=== PATIENT | female | born 1955 | race Caucasian/White ===

== ENCOUNTER 2021-05-18 15:17 | Emergency (ER) | payer MEDICAID ==
--- NOTE | 2021-05-18 16:09 | ED Physician Documentation ---
PD HPI FOCAL NEURO - Stated complaint Stated Complaint: RT SIDE WEAKNESS/SLURRED SPEACH - Chief complaint Chief Complaint: Neuro - History obtained from History obtained from: Patient, Family - Additional information Additional information: 66-year-old woman brought in by family for concern for stroke. They wonder if she might have some sort of developmental delay. And she has not seen a doctor since 1985. Last Friday she started to have some right-sided deficits and slurred speech. The speech is mostly better now but she still requires a walker to walk which she did not require before last Friday. Symptoms have been going on for 10 days. She denies any headaches or history of stroke. Since the day of onset the family has been giving her baby aspirin daily. This was the first day they could convince her to seek medical evaluation. Review of Systems Ten Systems: 10 systems reviewed and negative Constitutional: reports: Reviewed and negative Throat: reports: Reviewed and negative Respiratory: reports: Reviewed and negative PD PAST MEDICAL HISTORY - Present Medications Home Medications: Ambulatory Orders Medication Instructions Recorded Confirmed Atorvastatin [Lipitor] 1 tab PO DAILY #90 tablet 05/18/21 Clopidogrel [Plavix] 75 mg PO DAILY #21 tablet 05/18/21 Lisinopril [Zestril] 10 mg PO DAILY #90 tablet 05/18/21 - Allergies Allergies/Adverse Reactions: Allergies Allergy/AdvReac Type Severity Reaction Status Date / Time No Known Drug Allergies Allergy Verified 05/18/21 15:30 PD ED PE NORMAL - Vitals Vital signs reviewed: Yes - General General: Alert and oriented X 3, No acute distress - HEENT HEENT: PERRL, EOMI - Neck Neck: Supple, no meningeal sign, No bony TTP - Cardiac Cardiac: RRR, No murmur - Respiratory Respiratory: No respiratory distress, Clear bilaterally - Abdomen Abdomen: Normal bowel sounds, Soft, Non tender - Back Back: No CVA TTP, No spinal TTP - Derm Derm: Normal color, Warm and dry - Neuro Eye Opening: Spontaneous Motor: Obeys Commands Verbal: Oriented GCS Score: 15 - Psych Psych: Normal mood, Normal affect NIHSS - Time Time: 16:00 - Level of Consciousness Level of consciousness: (0) Alert, Keenly responsive LOC Questions: (0) Answers both Q's correct LOC Commands: (0) Performs both correctly - Gaze Best Gaze: (0) Normal - Visual Visual: (0) No loss - Facial Palsy Facial Palsy: (0) Normal, symmetrical movement - Motor Arms (both separate) Motor Arm (right): (1) Drift Motor Arm (left): (0) No drift - Motor Legs (both separate) Motor Leg (right): (0) No drift Motor Leg (left): (1) Drift - Limb Ataxia Limb Ataxia: (0) Absent - Sensory Sensory: (1) Qgbr-mm-nlrergya loss (She has significant inattention to stimulus in the upper and lower right extremity) - Best Language Best Language: (0) No aphasia - Dysarthria Dysarthria: (0) Normal - Extinction and Inattention (formally neg Extinction and inattention: (1) Visual,tactile,auditory,spatial, or personal inattention - Total Score/Results Total Score/Result: 4 Results - Vitals Vitals: Vital Signs - 24 hr 05/18/21 05/18/21 05/18/21 15:31 17:36 19:00 Temperature 36.8 C Heart Rate 92 94 90 Respiratory 19 16 18 Rate Blood Pressure 189/100 H 162/102 H 189/100 H O2 Saturation 98 98 99 Oxygen O2 Source Room air - EKG (time done) 1622 Rate: Rate (enter#) (90) Rhythm: NSR [place]: Normal Intervals: Normal [place] QRS: LVH Ischemia: Normal ST segments - Labs Labs: Laboratory Tests 05/18/21 05/18/21 05/18/21 16:31 16:31 16:31 WBC 8.4 RBC 4.82 Hgb 13.9 Hct 42.3 MCV 87.8 MCH 28.8 MCHC 32.9 RDW 13.2 Plt Count 294 MPV 9.9 Neut # (Auto) 6.8 H Lymph # (Auto) 1.1 L [place] # (Auto) 0.5 Eos # (Auto) 0.0 Baso # (Auto) 0.0 Absolute Nucleated RBC 0.00 Nucleated RBC % 0.0 PT 12.0 INR 1.1 Sodium 135 Potassium 3.0 L Chloride 94 L Carbon Dioxide 29 Anion Gap 12.0 BUN 13 Creatinine 0.8 Estimated GFR (MDRD) 72 L Glucose 121 H Calcium 9.4 PD MEDICAL DECISION MAKING - ED course ED course: This is a 66-year-old woman with likely developmental delay according to the family. She had a 10-day-old stroke affecting the right side of her body. Obviously because of the timeframe she is not a TPA candidate. CT angiography demonstrated focal stenosis of the left proximal P2 SIGHTSEEING GUIDE greater than 95%. No evidence of large stroke, she did have atrophy and multifocal white matter disease. CT angiography of the neck demonstrated mild plaquing and a multi nodular thyroid. Labs were relatively unremarkable except for mild hypokalemia at 3.0. I discussed this case with the patient and her niece. The patient is simplistic but has decision-making capacity. She did not want me to discuss the case with the neurologist knowing that that could take her to [place] for vascular intervention and does not want anything more done tonight. As such since she is already been on aspirin I will also put her on 3 weeks of Plavix, statin, and start some blood pressure medication pending follow-up. Dr Naik is the ED followup physician next week and I did email him for a heads up. Departure - Departure Disposition: 01 Home, Self Care Clinical Impression: Cerebrovascular accident (CVA) Qualifiers: CVA mechanism: unspecified Qualified Code(s): I63.9 - Cerebral infarction, unspecified Condition: Good Record reviewed to determine appropriate education?: Yes Instructions: ED Stroke Completed Follow-Up: Mahesh Naik MD [Provider Admit Priv/Credential] - Prescriptions: Atorvastatin [Lipitor] 1 tab PO DAILY #90 tablet Clopidogrel [Plavix] 75 mg PO DAILY #21 tablet Lisinopril [Zestril] 10 mg PO DAILY #90 tablet Comments: I sent your prescriptions electronically to [facility] [place]note 2] in [place]. Labs were okay except for mildly low potassium at 3.0. For this eat a high potassium diet, plenty of bananas, oranges, and potatoes. Continue the baby aspirin daily, and I am putting you on a stronger blood thinner for the next 3 weeks. Also a blood pressure medication and a anticholesterol medication return for new or worsening symptoms or if you decide you would like to have more advanced treatment done including but not limited to vascular consultation and intervention. Follow-up with Dr. Naik next week, call his office for an appointment. I am emailing him so that he is aware of your case. In addition to the blockage in the left posterior cerebral artery, he also have a bulky thyroid which would need a thyroid ultrasound at some point. Discharge Date/Time: 05/18/21 19:04
[2021-05-18] MEDS ORDERED: iohexoL-300 100 ML VIAL ONE ×2 (16:23→17:30)
[2021-05-18 16:37] LABS: BASOPHILS % (AUTO) 0.4 %; EOSINOPHILS % (AUTO) 0.2 %; HCT - HEMATOCRIT 42.3 % (37.0-47.0); HGB - HEMOGLOBIN 13.9 g/dL (12.0-16.0); LYMPHOCYTES # (AUTO) 1.1 10^3/uL (1.5-3.5); LYMPHOCYTES % (AUTO) 13.5 %; MEAN CORPUSCULAR HEMOGLOBIN 28.8 pg (27.0-31.0); MEAN CORPUSCULAR HGB CONC 32.9 g/dL (32.0-36.0); MEAN CORPUSCULAR VOLUME 87.8 fL (81.0-99.0); MEAN PLATELET VOLUME 9.9 fL (7.9-10.8); MONOCYTES # (AUTO) 0.5 10^3/uL (0.0-1.0); MONOCYTES % (AUTO) 5.5 %; NEUTROPHILS # (AUTO) 6.8 10^3/uL (1.5-6.6); NEUTROPHILS % (AUTO) 80.2 %; PLT - PLATELET COUNT 294 10^3/uL (130-450); RED BLOOD COUNT 4.82 10^6/uL (4.20-5.40); RED CELL DISTRIBUTION WIDTH 13.2 % (12.0-15.0); WHITE BLOOD COUNT 8.4 x10^3/uL (4.8-10.8)
[2021-05-18 16:44] LABS: CALCIUM 9.4 mg/dL (8.5-10.3); CREATININE 0.8 mg/dL (0.4-1.0)
[2021-05-18] MEDS: LORazepam 2 MG/ML VIAL IVP STA (16:44)
[2021-05-18 16:48] LABS: INR 1.1 (0.8-1.2)
[2021-05-18] MEDS: iohexoL-300 100 ML VIAL IVP ONE (17:16)
--- NOTE | 2021-05-18 18:04 | CT Report ---
PROCEDURE: CT angiogram brain with contrast, CT brain without contrast INDICATIONS: Neurologic deficit x10 days CONTRAST: IV CONTRAST: Isovue 300 ml: 160 PO CONTRAST: *NO PO CONTRAST TECHNIQUE: Precontrast 4.5 mm thick angled axial sections acquired from the foramen magnum to the vertex. Afte r the administration of intravenous contrast, 1 mm thick sections acquired through the [place] of [place] is. Postcontrast 4.5 mm thick sections then re-acquired from the foramen magnum to the vertex. For radiation dose reduction, the following was used: automated exposure control, adjustment of mA and/o r kV according to patient size. COMPARISON: None FINDINGS: Image quality: Excellent. Anterior circulation: Intracranial internal carotid arteries are normal in size and flow. The flow within the paired anterior cerebral arteries is normal and symmetric. The flow within the middle cer ebral arteries is normal and symmetric. The anterior communicating artery is seen. No aneurysms are seen. Posterior circulation: Visualized portions of the vertebral arteries demonstrate normal caliber, and join to form a normal appearing basilar artery. There is a tight greater than 95% stenosis involving the left proximal P2 STRAIGHTENING PRESS OPERATOR without occlusion. The distal vessel unremarkable. No aneurysms are seen. CSF spaces: Ventricles are normal in size and shape. Basal cisterns are patent. No extra-axial flu id collections. Brain: No midline shift. No intracranial bleeds or masses. Richards-white matter interface appears int act. Moderate atrophy and multifocal white matter chronic ischemic change noted. Atherosclerotic vas cular calcification noted in the cavernous segments of both internal carotid arteries as well as the intradural vertebral arteries. Skull and face: Calvarium and facial bones appear intact, without suspicious lesions. Sinuses: Minimal fluid and debris noted in the ethmoid sinuses. Incidental aeration of the left middl e turbinate noted as well IMPRESSION: No evidence of large vessel occlusion, aneurysm or vascular malformation Severe focal stenosis involving the left proximal P2 STRAIGHTENING PRESS OPERATOR is greater than 95%, preocclusive Reviewed by: Siddhartha Dinh MD on 05/18/2021 5:03 PM [place] Approved by: Siddhartha Dinh MD on 05/18/2021 5:03 PM [place] Station ID: [id number]
--- NOTE | 2021-05-18 18:11 | CT Report ---
PROCEDURE: ANGIO NECK W INDICATIONS: CVA sx CONTRAST: IV CONTRAST: Isovue 300 ml: 160 PO CONTRAST: *NO PO CONTRAST TECHNIQUE: After the administration of intravenous contrast, 1.5 mm axial sections acquired from the aortic arch to the [place] of [place]. Coronal 3-D maximum intensity projection (MIP) and/or volume rendering ref ormats were then performed. For radiation dose reduction, the following was used: automated exposur e control, adjustment of mA and/or kV according to patient size. COMPARISON: None. FINDINGS: Image quality: Excellent. Carotid system: The great vessels demonstrate a conventional anatomy as they arise from the aortic a [facility]. The origins of the common carotid arteries appear patent. The common carotid arteries demonstr ate normal calibers and courses. The bifurcation regions appear normal bilaterally. The internal ca rotid arteries demonstrate normal caliber and course. Posterior circulation: The origins of the vertebral arteries appear patent. The more superior porti ons of the vertebral arteries demonstrate normal course and caliber. They join to form a normal appe aring basilar artery. Soft tissues: Visualized neck soft tissues demonstrate no suspicious abnormalities. Thyroid is enla rged, heterogenous and shows multiple nodules partially calcified. Bones: No suspicious bony lesions. Visualized cervical spine appears normally aligned. IMPRESSION: Mild atherosclerotic plaque in both proximal internal carotid arteries without hemodynam ically significant stenosis utilizing NASCET criteria. Bulky nodular thyroid with partially calcified multiple nodules can be further evaluated with ultraso und. The estimate of stenosis included in the report of the imaging study was calculated using the NASCET method Reviewed by: Siddhartha Dinh MD on 05/18/2021 5:09 PM [place] Approved by: Siddhartha Dinh MD on 05/18/2021 5:09 PM [place] Station ID: [id number]
[2021-05-18 19:04] VITALS: BP 189/100
== END 2021-05-18 19:04 | disposition home or self-care (01) ==
LOC: ED 15:17
DX: I63.9 Cerebral infarction, unspecified (principal); R47.81 Slurred speech; G81.91 Hemiplegia, unspecified affecting right dominant side; R29.704 NIHSS score 4; R03.0 Elevated blood-pressure reading, without diagnosis of hypertension
CPT/HCPCS: 36415; 70496; 70498; 80048; 85025; 85610; 93005; 96374; 99284; J2060; Q9967

== ENCOUNTER 2021-10-09 11:01 | Outpatient (CLI) | payer MEDICAID ==
[2021-10-09 18:40] LABS: BASOPHILS % (AUTO) 0.4 %; EOSINOPHILS % (AUTO) 0.3 %; HCT - HEMATOCRIT 39.7 % (37.0-47.0); HGB - HEMOGLOBIN 12.7 g/dL (12.0-16.0); LYMPHOCYTES # (AUTO) 0.9 10^3/uL (1.5-3.5); LYMPHOCYTES % (AUTO) 11.8 %; MEAN CORPUSCULAR HEMOGLOBIN 29.1 pg (27.0-31.0); MEAN CORPUSCULAR VOLUME 90.8 fL (81.0-99.0); MEAN PLATELET VOLUME 10.1 fL (7.9-10.8); MONOCYTES # (AUTO) 0.5 10^3/uL (0.0-1.0); MONOCYTES % (AUTO) 6.5 %; NEUTROPHILS # (AUTO) 6.2 10^3/uL (1.5-6.6); NEUTROPHILS % (AUTO) 80.7 %; PLT - PLATELET COUNT 310 10^3/uL (130-450); RED BLOOD COUNT 4.37 10^6/uL (4.20-5.40); RED CELL DISTRIBUTION WIDTH 12.9 % (12.0-15.0); WHITE BLOOD COUNT 7.6 x10^3/uL (4.8-10.8)
[2021-10-09 18:56] LABS: ALBUMIN 4.2 g/dL (3.2-5.5); ALBUMIN/GLOBULIN RATIO 1.2 (1.0-2.2); ALKALINE PHOSPHATASE 60 IU/L (42-121); ALT ALANINE AMINOTRANSFERASE 13 IU/L (10-60); AST ASPARTATE AMINOTRANSFERASE 15 IU/L (10-42); BILIRUBIN,TOTAL 0.6 mg/dL (0.2-1.0); BUN - BLOOD UREA NITROGEN 14 mg/dL (6-20); CALCIUM 9.6 mg/dL (8.5-10.3); CARBON DIOXIDE - CO2 29 mmol/L (21-32); CHLORIDE 95 mmol/L (101-111); CHOL/HDL RATIO 2.6 (<4.4); CHOLESTEROL 156 mg/dL; CREATININE 0.8 mg/dL (0.4-1.0); GFR - MDRD 72 (>89); GLUCOSE 144 mg/dL (70-100); HDL CHOLESTEROL 61 mg/dL; LDL CHOLESTEROL,CALCULATED 79 mg/dL; LDL/HDL RATIO 1.3 (<4.4); POTASSIUM 3.6 mmol/L (3.5-5.0); SODIUM 134 mmol/L (135-145); TOTAL PROTEIN 7.7 g/dL (6.7-8.2); TRIGLYCERIDES 80 mg/dL; VLDL CHOLESTEROL 16 mg/dL
[2021-10-09 19:06] LABS: THYROID STIMULATING HORMONE 4.4 uIU/mL (0.34-5.60)
[2021-10-09 20:32] LABS: ESTIMATED AVERAGE GLUCOSE 120 mg/dL (70-100); HEMOGLOBIN A1c% 5.8 % (4.27-6.07)
== END 2021-10-09 11:02 | disposition home or self-care (01) ==
LOC: LAB.N 11:01
PROVIDERS: ATTEND Nurse Practitioner Family
DX: I10 Essential (primary) hypertension (principal); E55.9 Vitamin D deficiency, unspecified; Z86.79 Personal history of other diseases of the circulatory system
CPT/HCPCS: 36415; 80050; 80061; 82306; 83036; 83721

== ENCOUNTER 2022-03-01 14:32 | Emergency (ER) | payer MEDICARE, MEDICAID ==
[2022-03-01 14:46] LABS: BASOPHILS % (AUTO) 0.2 %; HCT - HEMATOCRIT 36.9 % (37.0-47.0); HGB - HEMOGLOBIN 12.8 g/dL (12.0-16.0); LYMPHOCYTES # (AUTO) 0.5 10^3/uL (1.5-3.5); LYMPHOCYTES % (AUTO) 3.7 %; MEAN CORPUSCULAR HEMOGLOBIN 30.7 pg (27.0-31.0); MEAN CORPUSCULAR HGB CONC 34.7 g/dL (32.0-36.0); MEAN CORPUSCULAR VOLUME 88.5 fL (81.0-99.0); MEAN PLATELET VOLUME 9.3 fL (7.9-10.8); MONOCYTES # (AUTO) 0.5 10^3/uL (0.0-1.0); MONOCYTES % (AUTO) 3.5 %; NEUTROPHILS # (AUTO) 12.8 10^3/uL (1.5-6.6); NEUTROPHILS % (AUTO) 92.4 %; PLT - PLATELET COUNT 337 10^3/uL (130-450); RED BLOOD COUNT 4.17 10^6/uL (4.20-5.40); RED CELL DISTRIBUTION WIDTH 12.6 % (12.0-15.0); WHITE BLOOD COUNT 13.9 x10^3/uL (4.8-10.8)
[2022-03-01 15:09] LABS: ALBUMIN 4.1 g/dL (3.2-5.5); ALBUMIN/GLOBULIN RATIO 1.1 (1.0-2.2); BILIRUBIN,TOTAL 0.7 mg/dL (0.2-1.0); CALCIUM 9.6 mg/dL (8.5-10.3); CREATININE 0.9 mg/dL (0.4-1.0); POTASSIUM 3.1 mmol/L (3.5-5.0)
--- NOTE | 2022-03-01 15:12 | XRAY Report ---
PROCEDURE: Chest 1 View X-Ray INDICATIONS: Chest Pain TECHNIQUE: One view of the chest was acquired. COMPARISON: None. FINDINGS: Surgical changes and devices: None. Lungs and pleura: Lung volumes are slightly diminished. Streaky bibasilar opacities favored to repre sent atelectasis. No definite focal consolidation noted. No pneumothorax or substantial pleural effus ion. Mediastinum: Accounting for patient positioning and rotation, cardiomediastinal contours are within normal limits. Heart size is within normal limits. Bones and chest wall: No suspicious bony lesions. Overlying soft tissues appear unremarkable. IMPRESSION: Slightly diminished lung volumes with suspected bibasilar atelectasis. Otherwise, no acute cardiopulm onary abnormality seen. Consider follow-up imaging with dedicated upright PA and lateral views of the chest when patient is able. Reviewed by: Radhames Escobar MD on 03/01/2022 3:10 PM PST Approved by: Radhames Escobar MD on 03/01/2022 3:10 PM PST Station ID: [id number]
[2022-03-01] MEDS ORDERED: POTASSIUM CHLORIDE 20 MEQ TABLET PO STA (15:14)
[2022-03-01] MEDS ORDERED: SODIUM CHLORIDE 0.9% 1,000 ML IV STA (15:14)
--- NOTE | 2022-03-01 15:17 | ED Physician Documentation ---
History of Present Illness - Stated complaint Stated Complaint: GLF/WEAKNESS - Chief complaint Chief Complaint: Neuro - History obtained from History obtained from: Patient, Family, EMS - History of Present Illness Timing: Today Pain level max: 0 Pain level now: 0 - Additonal information Additional information: Patient is a 66-year-old female who reportedly lives at home with family. She is brought into the emergency department for increasing weakness over the past 1 month. EMS states that she has had several falls recently. No injuries. Family states that they do not believe that the patient has struck her head, but does take Plavix. She also apparently has a history of dementia. Today she was reportedly unable to get up off the toilet. The patient states that she does not use any assistive walking devices at home. No changes to her medications. Nothing makes it better or worse. Review of Systems Ten Systems: 10 systems reviewed and negative Constitutional: denies: Fever, Chills GI: denies: Vomiting, Diarrhea Skin: denies: Rash Musculoskeletal: denies: Neck pain, Back pain Neurologic: denies: Headache PD PAST MEDICAL HISTORY - Past Medical History Cardiovascular: Hypertension, High cholesterol Respiratory: None Neuro: CVA Endocrine/Autoimmune: None GI: None Derm: None - Present Medications Home Medications: Ambulatory Orders Medication Instructions Recorded Confirmed Atorvastatin [Lipitor] 1 tab PO DAILY #90 tablet 05/18/21 03/01/22 Clopidogrel [Plavix] 75 mg PO DAILY #21 tablet 05/18/21 03/01/22 Lisinopril [Zestril] 10 mg PO DAILY #90 tablet 05/18/21 03/01/22 - Allergies Allergies/Adverse Reactions: Allergies Allergy/AdvReac Type Severity Reaction Status Date / Time No Known Drug Allergies Allergy Verified 03/01/22 14:57 - Social History Does the pt smoke?: No Smoking Status: Never smoker Does the pt drink ETOH?: No Does the pt have substance abuse?: No - Immunizations Immunizations are current?: Yes - POLST Patient has POLST: No PD ED PE NORMAL - Vitals Vital signs reviewed: Yes - General General: No acute distress, Well developed/nourished, Other (Alert, oriented to person and place) - HEENT HEENT: Atraumatic, PERRL, EOMI, Moist mucous membranes - Neck Neck: Supple, no meningeal sign - Cardiac Cardiac: RRR, Strong equal pulses - Respiratory Respiratory: No respiratory distress, Clear bilaterally - Abdomen Abdomen: Soft, Non tender, Non distended - Derm Derm: Warm and dry - Extremities Extremities: No tenderness to palpate, Normal ROM s pain, No calf tenderness / cord, Other (Contracted right arm) - Neuro Neuro: special order jeweler 2-12 intact, No motor deficit, No sensory deficit, Normal speech Eye Opening: Spontaneous Motor: Obeys Commands Verbal: Confused (Baseline for patient, dementia) GCS Score: 14 - Psych Psych: Normal mood, Normal affect Results - Vitals Vitals: Vital Signs - 24 hr 03/01/22 03/01/22 14:43 17:18 Temperature 37.5 C Heart Rate 90 84 Respiratory 18 17 Rate Blood Pressure 111/76 132/85 H O2 Saturation 100 98 Oxygen O2 Source Room air - EKG (time done) 1447 Rate: Rate (enter#) (86) Rhythm: NSR [place]: Normal Intervals: Normal [place] QRS: LVH Ischemia: Normal ST segments - Labs Labs: Laboratory Tests 03/01/22 03/01/22 03/01/22 14:38 14:38 14:38 WBC 13.9 H RBC 4.17 L Hgb 12.8 Hct 36.9 L MCV 88.5 MCH 30.7 MCHC 34.7 RDW 12.6 Plt Count 337 MPV 9.3 Neut # (Auto) 12.8 H Lymph # (Auto) 0.5 L [place] # (Auto) 0.5 Eos # (Auto) 0.0 Baso # (Auto) 0.0 Absolute Nucleated RBC 0.00 Nucleated RBC % 0.0 Sodium 130 L Potassium 3.1 L Chloride 89 L Carbon Dioxide 28 Anion Gap 13.0 BUN 27 H Creatinine 0.9 Estimated GFR (MDRD) 63 L Glucose 144 H Calcium 9.6 Total Bilirubin 0.7 AST 21 ALT 15 Alkaline Phosphatase 63 Troponin I High Sens 6.6 Total Protein 8.0 Albumin 4.1 Globulin 3.9 Albumin/Globulin Ratio 1.1 Lipase 32 Urine Color Urine Clarity Urine pH Ur Specific [place] Urine Protein Urine Glucose (UA) Urine Ketones Urine Occult Blood Urine Nitrite Urine Bilirubin Urine Urobilinogen Ur Leukocyte Esterase Ur Microscopic Review Urine Culture Comments Nasal Adenovirus (PCR) Nasal B. parapertussis DNA (PCR) Nasal Coronavir 229E PCR Nasal Coronavir HKU1 PCR Nasal Coronavir NL63 PCR Nasal Coronavir OC43 PCR Nasal Enterovir/Rhinovir PCR Nasal Influenza B PCR Nasal Influenza A PCR Nasal Parainfluen 1 PCR Nasal Parainfluen 2 PCR Nasal Parainfluen 3 PCR Nasal Parainfluen 4 PCR Nasal RSV (PCR) Nasal B.pertussis DNA PCR Nasal C.pneumoniae (PCR) Jimmy Human Metapneumo PCR Nasal M.pneumoniae (PCR) Nasal SARS-CoV-2 (PCR) 03/01/22 03/01/22 15:10 17:45 WBC RBC Hgb Hct MCV MCH MCHC RDW Plt Count MPV Neut # (Auto) Lymph # (Auto) [place] # (Auto) Eos # (Auto) Baso # (Auto) Absolute Nucleated RBC Nucleated RBC % Sodium Potassium Chloride Carbon Dioxide Anion Gap BUN Creatinine Estimated GFR (MDRD) Glucose Calcium Total Bilirubin AST ALT Alkaline Phosphatase Troponin I High Sens Total Protein Albumin Globulin Albumin/Globulin Ratio Lipase Urine Color YELLOW Urine Clarity CLEAR Urine pH 6.0 Ur Specific [place] 1.025 Urine Protein NEGATIVE Urine Glucose (UA) NEGATIVE Urine Ketones NEGATIVE Urine Occult Blood TRACE-INTA Urine Nitrite NEGATIVE Urine Bilirubin NEGATIVE Urine Urobilinogen 0.2 (NORMAL) Ur Leukocyte Esterase NEGATIVE Ur Microscopic Review NOT INDICATED Urine Culture Comments NOT INDICATED Nasal Adenovirus (PCR) NOT DETECTED Nasal B. parapertussis DNA (PCR) NOT DETECTED Nasal Coronavir 229E PCR NOT DETECTED Nasal Coronavir HKU1 PCR NOT DETECTED Nasal Coronavir NL63 PCR NOT DETECTED Nasal Coronavir OC43 PCR NOT DETECTED Nasal Enterovir/Rhinovir PCR NOT DETECTED Nasal Influenza B PCR NOT DETECTED Nasal Influenza A PCR NOT DETECTED Nasal Parainfluen 1 PCR NOT DETECTED Nasal Parainfluen 2 PCR NOT DETECTED Nasal Parainfluen 3 PCR NOT DETECTED Nasal Parainfluen 4 PCR NOT DETECTED Nasal RSV (PCR) NOT DETECTED Nasal B.pertussis DNA PCR NOT DETECTED Nasal C.pneumoniae (PCR) NOT DETECTED Jimmy Human Metapneumo PCR NOT DETECTED Nasal M.pneumoniae (PCR) NOT DETECTED Nasal SARS-CoV-2 (PCR) NOT DETECTED - Rads (name of study) head CT Radiology: Final report received, EMP read contemporaneously, See rad report cxr Radiology: Final report received, EMP read contemporaneously, See rad report PD MEDICAL DECISION MAKING - ED course Complexity details: reviewed results, re-evaluated patient, considered differential, d/w patient, d/w family ED course: No acute findings on head CT or chest x-ray. No acute laboratory abnormalities other than mild hypokalemia. Potassium given. IV fluids given. Patient is ambulating well with a walker, but slowly. She is steady. There is no indication for acute admission to the hospital. Discussed at length with the patient's family. They have a daughter who works at a rehab facility in [place], recommend that they follow-up with the patient's primary care provider to discuss if the patient would qualify for stay at a rehab facility. She also prior to this has had home health, but they stopped coming. They may want to restart this as well. The patient's family will take her home tonight and follow-up with her doctor on Friday. SW not available tonight This document was made in part using voice recognition software. While efforts are made to proofread this document, sound alike and grammatical errors may occur. Departure - Departure Disposition: Home, Self Care Clinical Impression: Generalized weakness, Dehydration, Hypokalemia Condition: Good Instructions: ED Dehydration, ED Weakness [facility] Follow-Up: Marli Coronado ARNP [Provider Admit Priv/Credential] - Within 3 Days Comments: Please follow-up with her primary care provider on Friday. As we discussed there is not a diagnosis today for admission to the hospital. She is able to walk with a walker here. She was given IV fluids and her potassium replaced. You should discuss with her PCP options to help with care at home including home health care as you have had previously versus a rehab facility versus a snf facility. Her head CT and chest x-ray do not show any acute abnormalities at this time. Discharge Date/Time: 03/01/22 19:08 NIHSS - Time Time: 14:30 - Level of Consciousness Level of consciousness: (0) Alert, Keenly responsive LOC Questions: (0) Answers both Q's correct LOC Commands: (0) Performs both correctly - Gaze Best Gaze: (0) Normal - Visual Visual: (0) No loss - Facial Palsy Facial Palsy: (0) Normal, symmetrical movement - Motor Arms (both separate) Motor Arm (right): (0) No drift Motor Arm (left): (0) No drift - Motor Legs (both separate) Motor Leg (right): (0) No drift Motor Leg (left): (0) No drift - Limb Ataxia Limb Ataxia: (0) Absent - Sensory Sensory: (0) Normal - Best Language Best Language: (0) No aphasia - Dysarthria Dysarthria: (0) Normal - Extinction and Inattention (formally neg Extinction and inattention: (0) No abnormality - Total Score/Results Total Score/Result: 0
[2022-03-01 15:22] LABS: BILIRUBIN,URINE NEGATIVE (NEGATIVE); GLUCOSE, URINE (UA) NEGATIVE (NEGATIVE); KETONES,URINE (UA) NEGATIVE (NEGATIVE); LEUKOCYTE ESTERASE, URINE NEGATIVE (NEGATIVE); NITRITE,URINE NEGATIVE (NEGATIVE); OCCULT BLOOD,URINE TRACE-INTA (NEGATIVE); PROTEIN,URINE NEGATIVE (NEGATIVE); UROBILINOGEN,URINE 0.2 (NORMAL) E.U./dL (NORMAL)
[2022-03-01 15:26] LABS: CLARITY,URINE CLEAR (CLEAR)
--- NOTE | 2022-03-01 17:05 | CT Report ---
PROCEDURE: HEAD WO INDICATIONS: weakness, fall TECHNIQUE: Noncontrast 4.5 mm thick angled axial sections acquired from the foramen magnum to the vertex. For r adiation dose reduction, the following was used: automated exposure control, adjustment of mA and/or kV according to patient size. COMPARISON: CT angiogram dated 05/18/2021. FINDINGS: Image quality: Study limited slightly by mild patient motion artifact. CSF spaces: Basal cisterns are patent. No extra-axial fluid collections. Ventricles are normal in size and shape. Brain: No midline shift. No intracranial masses or hemorrhage. No mass effect. Richards-white matter i nterface is normal. There cerebral volume loss for age with resultant ventricular and sulcal prominen ce. There are periventricular and deep white matter chronic small vessel ischemic changes. Atheroscle rotic calcifications are noted in the intracranial segments of the bilateral internal carotid arterie s. Skull and face: Calvarium and visualized facial bones are intact, without suspicious lesions. Sinuses: Visualized sinuses and mastoids are clear. IMPRESSION: CT head without acute intracranial abnormalities. Age-related senescent changes and sequ darian chronic small vessel ischemic disease. Reviewed by: Radhames Escobar MD on 03/01/2022 5:04 PM PST Approved by: Radhames Escobar MD on 03/01/2022 5:04 PM PST Station ID: [id number]
[2022-03-01 17:19] VITALS: BP 132/85
[2022-03-01 18:44] LABS: B. PARAPERTUSSIS- RESP PCR PAN NOT DETECTED; B. PERTUSSIS- RESP PCR PANEL NOT DETECTED; C. PNEUMONIAE- RESP PCR PANEL NOT DETECTED; CORONAVIRUS 229E-RESP PCR NOT DETECTED; CORONAVIRUS HKU1-RESP PCR NOT DETECTED; CORONAVIRUS NL63-RESP PCR NOT DETECTED; CORONAVIRUS OC43-RESP PCR NOT DETECTED; HUMAN METAPNEUMOVIRUS NOT DETECTED; INFLUENZA A- RESP PCR PANEL NOT DETECTED; INFLUENZA B - RESP PCR PANEL NOT DETECTED; M. PNEUMONIAE- RESP PCR PANEL NOT DETECTED; PARAINFLUENZA VIRUS 1 NOT DETECTED; PARAINFLUENZA VIRUS 2 NOT DETECTED; PARAINFLUENZA VIRUS 3 NOT DETECTED; PARAINFLUENZA VIRUS 4 NOT DETECTED; RHINOVIRUS/ENTEROVIRUS NOT DETECTED; RSV- RESP PCR PANEL NOT DETECTED; SARS-CoV-2 -RESP PCR PANEL NOT DETECTED
== END 2022-03-01 19:08 | disposition home or self-care (01) ==
LOC: EDUNIT# → ED 14:32
DX: R53.1 Weakness (principal); E86.0 Dehydration; E87.6 Hypokalemia; I10 Essential (primary) hypertension; F03.90 Unspecified dementia, unspecified severity, without behavioral disturbance, psychotic disturbance, mood disturbance, and anxiety
CPT/HCPCS: 36415; 51701; 70450; 71045; 80053; 81003; 83690; 84484; 85025; 87633; 93005; 96360; 99283; 99284; A9270; 81001; 87086

== ENCOUNTER 2022-03-01 18:16 | Outpatient (CLI) | payer MEDICARE, MEDICAID | END 2022-03-01 23:59 | disposition home or self-care (01) | LOC: EMS 18:16 | PROVIDERS: ATTEND Emergency Medicine | DX: R53.1 Weakness (principal); F03.90 Unspecified dementia, unspecified severity, without behavioral disturbance, psychotic disturbance, mood disturbance, and anxiety; I69.351 Hemiplegia and hemiparesis following cerebral infarction affecting right dominant side | CPT/HCPCS: A0425; A0428 ==

== ENCOUNTER 2022-03-04 13:39 | Outpatient (CLI) | payer MEDICARE, MEDICAID | END 2022-03-04 13:40 | disposition critical access hospital (66) | LOC: EMS 13:39 | DX: R53.1 Weakness (principal); R46.4 Slowness and poor responsiveness; R47.89 Other speech disturbances | CPT/HCPCS: A0425; A0429 ==

== ENCOUNTER 2022-03-04 13:57 | Emergency (ER) | payer MEDICARE, MEDICAID ==
--- NOTE | 2022-03-04 14:24 | ED Physician Documentation ---
PD HPI FOCAL NEURO - Stated complaint Stated Complaint: AMS - Chief complaint Chief Complaint: Neuro - History obtained from History obtained from: Patient - History of Present Illness Timing - onset: How many weeks ago (patient with poor po intake and general weakness for past couple of weeks. seen in ER recently with iV fluids given and here for couple days. discharged and family says she was able to help with some transferring. Now the past day, is unable to assist in her movement. Poor PO intake. Less output.) Timing - duration: Days, Weeks Timing - details: Gradual onset, Still present Severity of deficit: Moderate Weakness: Other (generalized weakness in addition to baseline right weakness s/p CVA last April.) Associated symptoms: No: Headache, Nausea / vomiting, Fall (had had falls prior to recent ED visit, with head cT done in ER. No falls since discharge.), Fever Baseline status: positive: Walker, Mildly confused Recently seen: Emergency Dept Review of Systems Unable to obtain: Other (from family member with her.) Constitutional: denies: Fever, Chills Nose: denies: Rhinorrhea / runny nose, Congestion Respiratory: denies: Dyspnea, Cough GI: reports: Nausea (less pO intake). denies: Vomiting, Diarrhea Skin: denies: Abrasion (s), Laceration (s) Neurologic: reports: Generalized weakness, Focal weakness (right side since April with CVA.), Head injury (last week, with some falls, but not apparently struck head.). denies: Headache, LOC Endocrine: reports: Weight loss Immunocompromised: denies: Immunocompromised PD PAST MEDICAL HISTORY - Past Medical History Cardiovascular: Hypertension, High cholesterol Respiratory: None Neuro: CVA Endocrine/Autoimmune: None GI: None Derm: None - Present Medications Home Medications: Ambulatory Orders Medication Instructions Recorded Confirmed Atorvastatin [Lipitor] 1 tab PO DAILY #90 tablet 05/18/21 03/01/22 Clopidogrel [Plavix] 75 mg PO DAILY #21 tablet 05/18/21 03/01/22 Lisinopril [Zestril] 10 mg PO DAILY #90 tablet 05/18/21 03/01/22 - Allergies Allergies/Adverse Reactions: Allergies Allergy/AdvReac Type Severity Reaction Status Date / Time No Known Drug Allergies Allergy Verified 03/01/22 14:57 - Social History Does the pt smoke?: No Smoking Status: Never smoker Does the pt drink ETOH?: No Does the pt have substance abuse?: No - Immunizations Immunizations are current?: Yes - POLST Patient has POLST: No PD ED PE NORMAL - Vitals Vital signs reviewed: Yes - General General: Well developed/nourished, Other (alert and attempting answers. Speech impairment s/p CVA though family says usually can communicate a bit better. ) - HEENT HEENT: Atraumatic, Pharynx benign, Other (hursuit with mostouche upper lip and some chin hair.). No: Moist mucous membranes - Neck Neck: Supple, no meningeal sign, No adenopathy - Cardiac Cardiac: RRR, No murmur - Respiratory Respiratory: Clear bilaterally - Abdomen Abdomen: Soft, Non tender - Derm Derm: Normal color, Warm and dry - Extremities Extremities: No edema, No calf tenderness / cord - Neuro Neuro: Other (right arm and leg with weakness for lifting up/effort abgainst gravity. 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 Left arm and leg with reasonable strength. ) Results - Vitals Vitals: Vital Signs - 24 hr 03/04/22 03/04/22 14:07 16:38 Temperature 37.5 C Heart Rate 83 66 Respiratory 15 18 Rate Blood Pressure 155/91 H 160/93 H O2 Saturation 99 96 Oxygen O2 Source Room air - Labs Labs: Laboratory Tests 03/04/22 03/04/22 15:06 15:06 WBC 9.7 RBC 4.15 L Hgb 12.5 Hct 37.2 MCV 89.6 MCH 30.1 MCHC 33.6 RDW 12.5 Plt Count 317 MPV 9.2 Neut # (Auto) 8.0 H Lymph # (Auto) 1.1 L [place] # (Auto) 0.6 Eos # (Auto) 0.0 Baso # (Auto) 0.1 Absolute Nucleated RBC 0.00 Nucleated RBC % 0.0 Sodium 130 L Potassium 3.4 L Chloride 91 L Carbon Dioxide 31 Anion Gap 8.0 BUN 17 Creatinine 0.8 Estimated GFR (MDRD) 72 L Glucose 147 H Calcium 9.3 Magnesium 1.7 Total Bilirubin 0.6 AST 21 ALT 19 Alkaline Phosphatase 58 Total Protein 7.4 Albumin 4.2 Globulin 3.2 Albumin/Globulin Ratio 1.3 Lipase 29 PD MEDICAL DECISION MAKING - ED course Complexity details: reviewed old records, considered differential (general weakness. Was in hospital recently and discharged. Has general weakness at home and unable to get around without help. Family looking for ? SNF. SW talked with them on options and cost. Family/pt opted to go home and arrange home aides/health. ), d/w patient, d/w family Departure - Departure Disposition: 01 Home, Self Care Clinical Impression: Generalized weakness, Dehydration Condition: Stable Record reviewed to determine appropriate education?: Yes Follow-Up: Marli Coronado ARNP [Primary Care Provider] - Comments: Continue with your current medications and any instructions from yesterday. Small frequent fluids and encourage intake. High calorie type supplements such as Ensure etc. may be useful in order to maximize nutritional intake. Follow-up with your primary care and also the resources provided by social work regarding longer-term placement. Discharge Date/Time: 03/04/22 17:51
[2022-03-04] MEDS ORDERED: SODIUM CHLORIDE 0.9% 1,000 ML IV STA (14:55)
[2022-03-04 15:12] LABS: BASOPHILS # (AUTO) 0.1 10^3/uL (0.0-0.1); BASOPHILS % (AUTO) 0.5 %; EOSINOPHILS % (AUTO) 0.4 %; HCT - HEMATOCRIT 37.2 % (37.0-47.0); HGB - HEMOGLOBIN 12.5 g/dL (12.0-16.0); LYMPHOCYTES # (AUTO) 1.1 10^3/uL (1.5-3.5); LYMPHOCYTES % (AUTO) 10.8 %; MEAN CORPUSCULAR HEMOGLOBIN 30.1 pg (27.0-31.0); MEAN CORPUSCULAR HGB CONC 33.6 g/dL (32.0-36.0); MEAN CORPUSCULAR VOLUME 89.6 fL (81.0-99.0); MEAN PLATELET VOLUME 9.2 fL (7.9-10.8); MONOCYTES # (AUTO) 0.6 10^3/uL (0.0-1.0); MONOCYTES % (AUTO) 5.9 %; NEUTROPHILS % (AUTO) 82.2 %; PLT - PLATELET COUNT 317 10^3/uL (130-450); RED BLOOD COUNT 4.15 10^6/uL (4.20-5.40); RED CELL DISTRIBUTION WIDTH 12.5 % (12.0-15.0); WHITE BLOOD COUNT 9.7 x10^3/uL (4.8-10.8)
[2022-03-04 15:28] LABS: ALBUMIN 4.2 g/dL (3.2-5.5); ALBUMIN/GLOBULIN RATIO 1.3 (1.0-2.2); BILIRUBIN,TOTAL 0.6 mg/dL (0.2-1.0); CALCIUM 9.3 mg/dL (8.5-10.3); CREATININE 0.8 mg/dL (0.4-1.0); MAGNESIUM 1.7 mg/dL (1.7-2.8); POTASSIUM 3.4 mmol/L (3.5-5.0); TOTAL PROTEIN 7.4 g/dL (6.7-8.2)
[2022-03-04 16:44] VITALS: BP 160/93
== END 2022-03-04 17:51 | disposition home or self-care (01) ==
LOC: EDUNIT# → EDBD → ED 13:57
DX: E86.0 Dehydration (principal); R53.1 Weakness; I10 Essential (primary) hypertension
CPT/HCPCS: 36415; 80053; 83690; 83735; 85025; 96360; 99283